=== PATIENT | female | born 1950 | race Caucasian/White ===

== ENCOUNTER → 2018-04-01 | Outpatient (CLI) | payer MEDICARE, OTHER ==
[~2018-04-01] MED LIST: Aspir 8181 MG PO; CLON.5 PO; GABA300 PO; Inderal40 MG PO; METF500C PO; METTREX2.5 PO; Omeprazole20 M1 PO; SPIR50 PO; ZOLP10 PO
== END | disposition home or self-care (01) ==
LOC: LAB SHORT 14:01 → PLD 14:01
DX: D22.5 Melanocytic nevi of trunk (principal)
CPT/HCPCS: 88305

== ENCOUNTER 2019-02-01 09:52 | Day surgery (SDC) | payer MEDICARE, OTHER ==
[~2019-02-01] VITALS: Ht 167.6 cm; Wt 74.1 kg
[~2019-02-01 09:52] MED LIST changes: +ANAS1 PO; +ARNUITY ELLIP100 MCG; +CLARITIN10 MG PO; +DEXA4 PO; +FLONASE SENSIM5.9 ML; +Ipratropium Bro30 ML; +ONDA8 PO; +Primidone50 MG PO
[2019-02-01] MEDS ORDERED: PRAV20 (10:44)
[2019-02-01] MEDS ORDERED: ESCI10 (10:44)
--- NOTE | 2019-02-01 10:48 | NUR ---
02/01/19 1048 Asad Antonio 1ST IV ATTEMPT IN RH UNSUCCESSFUL, ORSC.BDK 2ND IV ATTEMPT IN RFA SUCCESSFUL, ORSC.BDK
== END 2019-02-01 12:52 | disposition home or self-care (01) ==
LOC: ORSCSDS 09:52
PROVIDERS: Internal Medicine Gastroenterology
PROC: 0DBN8ZX Excision of Sigmoid Colon, Via Natural or Artificial Opening Endoscopic, Diagnostic (ICD-10-PCS; principal; 2019-02-01 11:00)
DX: R94.8 Abnormal results of function studies of other organs and systems (principal); D64.9 Anemia, unspecified; K52.9 Noninfective gastroenteritis and colitis, unspecified; Z86.010 Personal history of colon polyps; K57.30 Diverticulosis of large intestine without perforation or abscess without bleeding; Z83.71 Family history of colonic polyps; Z85.3 Personal history of malignant neoplasm of breast; E88.81 Metabolic syndrome and other insulin resistance; L40.50 Arthropathic psoriasis, unspecified; Z79.899 Other long term (current) drug therapy
CPT/HCPCS: 88305; J1980; J2704; J7120

== ENCOUNTER → 2019-11-03 | Outpatient (CLI) | payer MEDICARE, OTHER ==
[~2019-11-03] MED LIST changes: +ESCI10; +PRAV20
== END | disposition home or self-care (01) ==
LOC: LAB SHORT 21:00 → OLS 21:00 → LAB FUT 11-02 17:15
DX: J20.9 Acute bronchitis, unspecified (principal)
CPT/HCPCS: 87070; 87077; 87147; 87186; 87205